=== PATIENT | female | born 1995 | race Caucasian/White ===

== ENCOUNTER → 2021-11-10 12:22 | Outpatient (CLI) | payer OTHER, SELFPAY ==
--- NOTE | ~2021-11-10 | DEXA_ITS ---
Bone Density Report Name: ANDREY MCKEE Age: 26 Sex: Female Ethnicity: White Date of : 1995 Indication: screening, depo shot Referring Provider: CHEMO NRAVAEZ Study: Bone densitometry was performed. Exam Date: November 10, 2021 Accession number: [id number] Bone Density: Region BMD T-score Z-score Classification AP Spine (L1-L4) 0.780 -2.4 -2.4 Osteopenia Femoral Neck (Left) 0.589 -2.3 -2.3 Osteopenia Total Hip (Left) 0.701 -2.0 -2.0 Osteopenia Femoral Neck (Right) 0.520 -3.0 -2.9 Osteoporosis Total Hip (Right) 0.660 -2.3 -2.3 Osteopenia Total Hip Mean 0.681 -2.2 -2.2 Osteopenia World Health Organization criteria for BMD impression classify patients as: Normal (T-score at or above -1.0), Osteopenia (T-score between -1.0 and -2.5), or Osteoporosis (T-score at or below -2.5). 10-year Fracture Risk: FRAX not reported because: Some T-score for Spine Total or Hip Total or Femoral Neck at or below -2.5 Clinical Information Provided by Patient: Has used the following medications: Calcium, DEPO SHOT Patient maximum height was 63.7 Drinks caffeinated beverages Onset of menses at age 11 Premenopausal Number of children 0 Missed period for more than 6 months in a row Impression: The patient's bone mass is below expected range for age, gender and ethnicity based on the Right Femoral Neck Z-score. Discussion: BONE DENSITY IS ABNORMALLY LOW FOR AGE, SEX, AND RACE. This patient's lowest Z-score is -2.0 or more below average for age, sex, and race at one or more sites. This may be due to low peak bone mass or to excessive bone loss. There may be some underlying disease or condition contributing to reduced bone mass. Further evaluation should be considered. Although there is a predictable association between low bone mass and the risk of osteoporotic fractures in untreated postmenopausal women, there are no data relating bone density and fracture risk in younger women. The ISCD position is that the diagnosis of ?low bone mass? or ?osteoporosis? should not be made on densitometric criteria alone. WHO criteria only apply to postmenopausal women. The 10-year fracture risk calculated by FRAX is less than the threshold recommended by the National Osteoporosis Foundation (NOF) for treatment for postmenopausal women, and no threshold has been established for premenopausal women. All treatment decisions require clinical judgment and consideration of individual patient factors, including patient preferences, comorbidities, previous drug use, risk factors not captured in the FRAX model (e.g., frailty, falls, vitamin D deficiency, increased bone turnover, interval significant decline in bone density) and possible under or overestimation of fracture risk by FRAX. Although pharmacologic therapy is sometimes indicated for patient
== END ==
PROVIDERS: Visit Provider Obstetrics & Gynecology Gynecology
DX: Z79.899 Other long term (current) drug therapy (principal); M85.89 Other specified disorders of bone density and structure, multiple sites; M81.0 Age-related osteoporosis without current pathological fracture
CPT/HCPCS: 77080

== ENCOUNTER 2025-08-06 10:15 | Outpatient (CLI) | payer OTHER, SELFPAY ==
--- NOTE | ~2025-08-06 | DEXA_ITS ---
Bone Density Report Name: ANDREY MCKEE Age: 30 Sex: Female Ethnicity: White Date of : 1995 Indication: monitoring treatment; secondary osteoporosis; Referring Provider: CHEMO NARVAEZ Study: Bone densitometry was performed. Exam Date: August 06, 2025 Accession number: [id number] Bone Density: Region BMD T-score Z-score Classification AP Spine(L1-L4) 0.898 -1.4 Femoral Neck (Left) 0.636 -1.8 Total Hip (Left) 0.771 -1.4 Femoral Neck (Right) 0.591 -2.2 Total Hip (Right) 0.730 -1.7 Total Hip Mean 0.751 -1.6 World Health Organization criteria for BMD impression classify patients as: Normal (T-score at or above -1.0), Osteopenia (T-score between -1.0 and -2.5), or Osteoporosis (T-score at or below -2.5). 10-year Fracture Risk(1): Major Osteoporotic Fracture 3.0% Hip Fracture 0.7% Reported Risk Factors: [place] (), Neck BMD=0.591, BMI=26.4, secondary osteoporosis Input outside FRAX(R) limits. Adjusted to:Age=40 (1) FRAX(R) Version 3.08. Fracture probability calculated for an untreated patient. Fracture probability may be lower if the patient has received treatment. Previous Exams: -- Region Exam Age BMD T-score BMD Change BMD Change Date g/cm2 vs Baseline vs Previous -- AP Spine (L1-L4) 08/06/2025 30 0.898 15.1%* 15.1%* 11/10/2021 26 0.780 Total Hip(Left) 08/06/2025 30 0.771 10.0%* 10.0%* 11/10/2021 26 0.701 Total Hip(Right) 08/06/2025 30 0.730 10.6%* 10.6%* 11/10/2021 26 0.660 -- *Denotes significance at 95% confidence level, LSC for AP Spine = 0.022 g/cm2, LSC for Total Hip = 0.027 g/cm2 Clinical Information Provided by Patient: Has secondary osteoporosis Is being treated for osteoporosis Has used the following medications: Fosamax (i.e. alendronate), Vitamin D Patient maximum height was 64.25 No regular weight bearing exercise Drinks caffeinated beverages Onset of menses at age 10 Premenopausal Number of children 0 Missed period for more than 6 months in a row Impression: The patient's bone mass is below expected range for age, gender and ethnicity based on the Right Femoral Neck Z-score. The patient has an estimated ten-year risk of hip fracture of 0.7% and an estimated ten-year risk of major fracture of 3%, based on the WHO FRAX algorithm. No significant bone loss was observed. Discussion: PATIENT UNDER TREATMENT WITH NO SIGNIFICANT BMD LOSS SINCE LAST EXAM. In an untreated patient, BMD typically declines with age. A lack of decline or gain is usually a sign that treatment is efficacious and fracture risk is reduced. It is important to ask patients whether they are taking their medications and to encourage continued and appropriate compliance with their osteoporosis therapies to reduce fracture risk. It is also important to review their risk factors and encourage appropriate calcium and vitamin D intakes, exercise, fall prevention and other lifestyle measures. Follow-Up: Consider a repeat BMD and Vertebral Fracture Assessment (VFA) exam in 2 years or sooner if medically necessary, to reassess this patient's status. Reported by: QUAN on 08/06/2025 10:33:00 AM. Reviewed, dictated and finalized at location A.
== END 2025-08-06 10:16 | disposition home or self-care (01) ==
LOC: MICIMG 10:16
PROVIDERS: Visit Provider Obstetrics & Gynecology Gynecology
DX: M85.89 Other specified disorders of bone density and structure, multiple sites (principal)
CPT/HCPCS: 77080